=== PATIENT | male | born 1950 | race Caucasian/White ===

== ENCOUNTER 2016-10-29 01:29 | Observation (INO) | payer BC ==
[~2016-10-29] VITALS: Ht 167.6 cm; Wt 92.2 kg
[~2016-10-29 01:29] MED LIST: ASPIR-LOW81 MG PO; ASPIRIN325 MG PO; CLOPIDOGREL75 MG PO; COUMADIN5 MG PO; DILTIAZEM 24HR240 MG PO; LISINOPRIL2.5 MG PO; LOPRESSOR25 MG PO; LOVENOX100 MG/1 M SC; NITROSTAT0.4 MG SL; PRAVASTATIN SOD80 MG PO
[2016-10-29 02:01] LABS: HEMATOCRIT 42.3 % (38.0-50.0); MCH 31.5 PG (29.0-34.0); MCHC 34.5 G/DL (30.0-36.0); MCV 91.2 FL (86-99); MEAN PLAT.VOLUME 11.1 uM^3 (9.0-12.4); PLATELET COUNT 150 K/uL (156-360); RBC DIS.WIDTH-CV 13.1 % (11.8-14.6); RBC DIS.WIDTH-SD 42.8 % (39-53); RED BLOOD COUNT 4.64 M/uL (4.00-5.50); WHITE BLOOD COUNT 7.8 K/uL (4.1-10.2)
[2016-10-29 02:10] LABS: PROTHROMBIN TIME 11.6 (9.2-11.2); PTT 29.6 (25-32)
[2016-10-29 02:11] LABS: CHLORIDE 102 mEq/L (99-109); POTASSIUM 4.4 mEq/L (3.7-5.4); SODIUM 134 mEq/L (136-147)
[2016-10-29 02:13] LABS: GLUCOSE 116 mg/dL (70-99)
[2016-10-29 02:14] LABS: ANION GAP 11 MEQ/L (2-14)
[2016-10-29 02:15] LABS: TOTAL BILIRUBIN 1.1 mg/dL (0.0-1.0)
[2016-10-29 02:16] LABS: INFLUENZA A VIRAL ANTIGEN POSITIVE; INFLUENZA B VIRAL ANTIGEN NEGATIVE
[2016-10-29 02:16] LABS: ALKALINE PHOSPHATASE 93 IU/L (3-129)
[2016-10-29 02:17] LABS: GFR ESTIMATE (CALCULATED) > 59 mL/min/
[2016-10-29 02:18] LABS: INTER. NORMALIZED RATIO 1.1; UREA NITROGEN (BUN) 19 mg/dL (9-23)
[2016-10-29 02:21] LABS: TROP-I INTERPRETATION NEGATIVE; TROPONIN-I < 0.01 ng/mL (0.0-0.30)
[2016-10-29 05:19] VITALS: BP 142/88
[2016-10-29 07:44] VITALS: BP 122/48; BP 122/58
[2016-10-29 08:57] LABS: TROP-I INTERPRETATION NEGATIVE; TROPONIN-I < 0.01 ng/mL (0.0-0.30)
[2016-10-29 11:01] VITALS: BP 123/74
[2016-10-29] MEDS ORDERED: OSELTAMIVIR PHO30 MG PO (15:01)
[2016-10-29] MEDS ORDERED: DILTIAZEM 24HR240 MG PO (15:02)
[2016-10-29 15:21] LABS: TROP-I INTERPRETATION NEGATIVE; TROPONIN-I < 0.01 ng/mL (0.0-0.30)
[2016-10-29] MEDS ORDERED: ZETIA10 MG PO (16:15)
[2016-10-29] MEDS ORDERED: ELIQUIS5 MG PO (16:15)
== END 2016-10-29 17:00 | disposition home or self-care (01) ==
LOC: EME → EDBD 01:29 → EME 01:29 → EDOF 04:01 → 5WEST 05:12
PROVIDERS: Emergency Medicine; Family Medicine
DX: I95.1 Orthostatic hypotension (principal); E86.0 Dehydration; J10.1 Influenza due to other identified influenza virus with other respiratory manifestations; I48.1 Persistent atrial fibrillation; I10 Essential (primary) hypertension; I25.10 Atherosclerotic heart disease of native coronary artery without angina pectoris; E78.5 Hyperlipidemia, unspecified; I25.2 Old myocardial infarction
CPT/HCPCS: 71010; 80053; 84484; 85027; 85610; 85730; 86850; 86900; 86901; 87502; 93005; 99281; 99285; G0378; J2405; J7030

== ENCOUNTER 2018-02-16 22:07 | Emergency (ER) | payer BC, OTHER ==
[~2018-02-16] VITALS: Ht 167.6 cm; Wt 94.9 kg
[~2018-02-16 22:07] MED LIST changes: +ELIQUIS5 MG PO; +OSELTAMIVIR PHO30 MG PO; +ZETIA10 MG PO
[2018-02-17 00:01] LABS: HEMATOCRIT 42.1 % (38.0-50.0); MCH 32.3 PG (29.0-34.0); MCHC 34.7 G/DL (30.0-36.0); MCV 93.1 FL (86-99); PLATELET COUNT 170 K/uL (156-360); RBC DIS.WIDTH-CV 12.4 % (11.8-14.6); RBC DIS.WIDTH-SD 42.8 % (39-53); RED BLOOD COUNT 4.52 M/uL (4.00-5.50); WHITE BLOOD COUNT 8.5 K/uL (4.1-10.2)
[2018-02-17 00:10] LABS: CHLORIDE 102 mEq/L (99-109); SODIUM 134 mEq/L (136-147)
[2018-02-17 00:12] LABS: GLUCOSE 92 mg/dL (70-99); TOTAL PROTEIN 6.9 g/dL (6.4-8.3)
[2018-02-17 00:16] LABS: ALKALINE PHOSPHATASE 81 IU/L (3-129); GFR ESTIMATE (CALCULATED) > 59 mL/min/ (58.99-99999)
[2018-02-17 00:17] LABS: AST (GOT) 34 IU/L (2-34); UREA NITROGEN (BUN) 25 mg/dL (9-23)
[2018-02-17 00:19] LABS: ALT (GPT) 59 IU/L (3-49)
[2018-02-17 00:32] LABS: ERTH.SED.RATE 15 MM/HR (0-20)
[2018-02-17 00:34] LABS: HEMOGLOBIN 14.6 G/DL (12.5-16.6)
[2018-02-17] MEDS ORDERED: PREDNISONE20 MG PO (04:45)
[2018-02-17 05:33] VITALS: BP 116/93
== END 2018-02-17 05:33 | disposition home or self-care (01) ==
LOC: EME 22:07
PROVIDERS: Emergency Medicine
DX: R51 Headache (principal); E78.5 Hyperlipidemia, unspecified; I25.10 Atherosclerotic heart disease of native coronary artery without angina pectoris; I25.2 Old myocardial infarction; Z90.49 Acquired absence of other specified parts of digestive tract; Z88.8 Allergy status to other drugs, medicaments and biological substances
CPT/HCPCS: 70450; 70496; 70498; 80053; 85027; 85651; 99281; 99285; J1885; J2765

== ENCOUNTER 2018-03-19 07:13 | Day surgery (SDC) | payer OTHER ==
[~2018-03-19] VITALS: Ht 167.6 cm; Wt 93.8 kg
[~2018-03-19 07:13] MED LIST changes: +MOTRIN IB200 MG PO; +PREDNISONE20 MG PO
[2018-03-19 08:32] VITALS: BP 115/81
[2018-03-19 11:05] VITALS: BP 109/73
[2018-03-19 11:36] VITALS: BP 100/74
== END 2018-03-19 11:55 | disposition home or self-care (01) ==
LOC: SDC
PROC: 03BT0ZX Excision of Left Temporal Artery, Open Approach, Diagnostic (ICD-10-PCS; principal; 2018-03-19)
DX: M31.6 Other giant cell arteritis (principal); I10 Essential (primary) hypertension; I48.91 Unspecified atrial fibrillation; K21.9 Gastro-esophageal reflux disease without esophagitis; I25.2 Old myocardial infarction; Z88.8 Allergy status to other drugs, medicaments and biological substances; Z79.82 Long term (current) use of aspirin; Z79.01 Long term (current) use of anticoagulants
CPT/HCPCS: 88305; 88313; J1100; J1885; J2250; J2405; J3010; S0020